=== PATIENT | female | born 1965 | race African-American/Black ===

== ENCOUNTER 2017-08-12 19:11 | Inpatient (IN) | payer BC, OTHER ==
[~2017-08-12] VITALS: Ht 149.9 cm; Wt 64.4 kg
--- NOTE | ~2017-08-12 | EKG ---
[place] [address] [facility] [place] [place] [address] ELECTROCARDIOGRAM REPORT Name: YOVANNY BENNETT Room #: 215-P ADM IN M.R.#: [id number] Admission: 08/12/17 Attend Phys: Rk Portillo MD Discharge: Date of : 61 Report #: [id number] THIS REPORT FOR: //name// [facility] ED Test Date: 2017-08-12 Test Time: 19:19:36 Pat Name: YOVANNY BENNETT Department: Room: 215 Gender: F [employer]: JESSICA : 1965 Requested By: Alec Toussaint Order Number: [id number] MD: Steven Renteria Measurements Intervals [place] Rate: 64 P: 30 TX: 147 QRS: 8 QRSD: 87 T: 36 QT: 382 QTc: 394 Interpretive Statements Sinus rhythm ST elev, probable normal early repol pattern Compared to ECG 06/05/2013 11:02:00 No significant change was found Electronically Signed On 08-13-2017 8:41:17 CUTTER OPERATOR by Steven Renteria [email or web address] <ELECTRONICALLY SIGNED> By: Steven Renteria MD, [facility] 08/13/17 0841 18 18 Steven Renteria MD, [facility] /EPI
--- NOTE | ~2017-08-12 | EXE ---
[facility] [place] [address] STRESS ECHOCARDIOGRAM Name: YOVANNY BENNETT Room #: 215-P [facility] IN ..#: [id number] Admission: 08/12/17 Attend Phys: Rk Portillo MD Discharge: Date of : 61 Date of Service: 08/13/17 1232 Report #: [id number] THIS REPORT FOR: //name// APPROVED REPORT Exam: Stress Echocardiogram Indication: Chest pain Patient Location: Echo lab Stress Nurse: Rochelle Melvin RN Room #: 215 Status: routine Ht: 4 ft 11 in HR: 53 bpm BP: 136/84 mmHg Medical History Medical History: HTN Cardiac Risk Factors: HTN, Smoking, FHX of CAD Procedure The patient underwent an Exercise Stress Test using the Osvaldo Protocol. Blood pressure, heart rate, and EKG were monitored. An Echocardiogram was performed by boiler service technician in four stages in quad fashion. At peak stress, four selected images were obtained and placed side by side with resting images for comparison. Stress Test Details Stress Test: Exercise stress testing was performed using a Osvaldo protocol. HR Resting HR: 53 bpm Max Heart Rate (APMHR): 166 bpm Max HR Achieved: 173 bpm Target HR (85% APMHR): 141 bpm % of APMHR: 104 Recovery HR: 79 bpm HR response to stress: Normal HR response to stress BP Resting BP: 136/84 mmHg Max BP: 174/96 mmHg Recovery BP: 130/82 mmHg ECG Resting ECG: Sinus Rhythm Stress ECG: Sinus Tachycardia Recovery ECG: Sinus Rhythm [facility] [address] [place] [address] STRESS ECHOCARDIOGRAM Name: YOVANNY BENNETT Room #: 215-P [facility] [place] ..#: [id number] Admission: 08/12/17 Attend Phys: Rk Portillo MD Discharge: Date of : 61 Date of Service: 08/13/17 1232 Report #: [id number] Clinical Reason for Termination: Maximal effort Exercise duration: 8 min 03 sec Highest Stage Achieved: Stage 3: 3.4 mph at 14% grade. Exercise capacity: 10.1 METs Overall Exercise Capacity for Age: Normal Pre-Stress Echo The resting Echocardiogram showed normal left ventricular contractility with an estimated Ejection Fraction of about 55%. Normal wall motion in all segments on baseline images. Post-Stress Echo The stress Echocardiogram showed normal left ventricular contractility with an estimated Ejection Fraction of about 65%. Normal augmentation of wall motion in all segments on post stress images. Clinical Normal augmentation of myocardial wall segments using a 17 segment model. No clinical or ECG evidence for ischemia. Conclusion Clinical Response: Non-ischemic Exercise Capacity: Average Stress ECG Response: Non-ischemic Stress Echo Images: Non-ischemic 1. LOW RISK STUDY 2. SMALL HEMODYNAMICALLY INSIGNIFICANT PERICARDIAL EFFUSION Other Information Study Quality: Good <Conclusion> 1. LOW RISK STUDY 2. SMALL HEMODYNAMICALLY INSIGNIFICANT PERICARDIAL EFFUSION <ELECTRONICALLY SIGNED> By: Kareem Maria MD 08/13/17 1232 1232 1232 Kareem Maria MD /INF
[2017-08-12 19:11] VITALS: BP 150/91
[~2017-08-12 19:11] MED LIST: GUAIFENESIN/COD10 ML PO; MINIVELLE1 EAC1 TRANSDERM; NOHOMEMEDICATIONS; NORCO 5-325 TA1 EACH PO; TESSALON PERLE100 MG PO; ULTRAM 50MG TAB50 MG PO; ZOFRAN ODT4 MG PO
[2017-08-12 19:46] LABS: ABSOLUTE NEUTROPHILS 2.4 thou/uL (1.4-8.2); BASOPHILS 0.8 % (0.0-2.0); EOSINOPHILS 1.2 % (0.0-3.0); HEMATOCRIT 36.6 % (37.0-47.0); HEMOGLOBIN 12.5 gm/dL (12.0-15.0); LYMPHOCYTES 48.5 % (24.0-44.0); MCH 31.4 pg (26.0-34.0); MCHC 34.2 g/dL (28.0-37.0); MCV 91.7 fL (80.0-100.0); MONOCYTES 9.3 % (1.0-8.0); PLATELET COUNT 225 thou/uL (150-400); POLYS 40.2 % (36.0-66.0); RDW 13.8 % (10.5-14.5); WBC 5.9 thou/uL (4.0-11.0)
[2017-08-12 19:49] LABS: ANION GAP 6 mmol/L (7-16); BUN 12 mg/dL (7-18); CALCIUM 11.2 mg/dL (8.5-10.1); CHLORIDE 107 mmol/L (98-107); CO2 29 mmol/L (21-32); CREATININE 0.9 mg/dL (0.6-1.0); GLUCOSE 97 mg/dL (74-106); POTASSIUM 3.5 mmol/L (3.5-5.1); SODIUM 142 mmol/L (136-145)
[2017-08-12 19:58] LABS: ALBUMIN 3.9 g/dL (3.4-5.0); SGOT 21 U/L (15-37); SGPT 26 U/L (30-65); TOTAL BILIRUBIN 0.4 mg/dL (<0.1-1.0); TOTAL PROTEIN 7.7 g/dL (6.4-8.2); TROPONIN-I < 0.04 ng/mL (<0.06)
[2017-08-12 22:27] VITALS: BP 156/92
[2017-08-12 22:44] VITALS: BP 138/89
[2017-08-13 01:55] LABS: ANION GAP 9 mmol/L (7-16); BUN 12 mg/dL (7-18); CALCIUM 9.7 mg/dL (8.5-10.1); CHLORIDE 108 mmol/L (98-107); CO2 30 mmol/L (21-32); GLUCOSE 122 mg/dL (74-106); POTASSIUM 3.5 mmol/L (3.5-5.1); SERUM ASSESSMENT Clear; SODIUM 147 mmol/L (136-145)
[2017-08-13 02:03] LABS: CHOLESTEROL 149 mg/dL (<200); HDL CHOLESTEROL 42 mg/dL (>40); LDL CHOLESTEROL 84 mg/dL (<100); TC:HDL 3.5 Ratio (Not establshd); TRIGLYCERIDE 118 mg/dL (<150); TROPONIN-I < 0.04 ng/mL (<0.06); VLDL 24 mg/dL (<40)
[2017-08-13 04:30] VITALS: BP 111/78
[2017-08-13 07:30] VITALS: BP 134/91
[2017-08-13 12:00] VITALS: BP 144/83
[2017-08-13 17:44] VITALS: BP 144/83
== END 2017-08-13 18:30 | disposition home or self-care (01) | DRG 313 ==
LOC: ER 19:11 → EROBS 20:44 → 2N 20:44
PROVIDERS: Nurse Practitioner Family; Physician Assistant
DX: R07.89 Other chest pain (principal); F17.210 Nicotine dependence, cigarettes, uncomplicated; Z90.710 Acquired absence of both cervix and uterus; Z71.6 Tobacco abuse counseling; Z83.3 Family history of diabetes mellitus; Z82.3 Family history of stroke; Z82.49 Family history of ischemic heart disease and other diseases of the circulatory system; Z84.1 Family history of disorders of kidney and ureter
CPT/HCPCS: 10194

== ENCOUNTER → 2017-10-08 | Outpatient (CLI) | payer BC, OTHER | LOC: ULTRA 06:17 | DX: R10.9 Unspecified abdominal pain (principal) ==